=== PATIENT | female | born 1950 | race Caucasian/White ===

== ENCOUNTER 2020-08-11 07:37 | Outpatient (REF) | payer MEDICARE, SELFPAY ==
[2020-08-11 11:50] LABS: Alanine Aminotransferase 115 U/L (0-31); Albumin Level 4.4 g/dL (3.5-5.0); Alkaline Phosphatase 88 U/L (39-117); Anion Gap 12 (12-20); Aspartate Amino Transferase 70 U/L (5-31); Bilirubin Total 0.5 mg/dL (0.0-1.0); Blood Urea Nitrogen 19 mg/dL (9-16); Calcium 9.7 mg/dL (8.4-10.2); Carbon Dioxide 27 mmol/L (22-29); Chloride 105 mmol/L (96-108); Cholesterol 148 mg/dL; Estimated Glomerular Filt Rate > 60; Glucose Fasting 121 mg/dL (60-99); HDL Cholesterol 46 mg/dL; LDL Cholesterol Calculated 81 mg/dl; Potassium 4.4 mmol/l (3.3-5.1); Sodium 140 mmol/L (135-145); Total Protein 7.6 g/dL (6.5-8.0); Triglycerides 108 mg/dL
[2020-08-11 12:25] LABS: Creatinine Urine 153.48 mg/dL; Microalbum/Creatinine Ratio Ur 5.2 ug/mg cr
== END 2020-08-11 07:38 | disposition home or self-care (01) ==
LOC: HO.HMGCLDS 07:37
PROVIDERS: PCP Nurse Practitioner Family; Visit Provider Internal Medicine Endocrinology, Diabetes & Metabolism
DX: E11.65 Type 2 diabetes mellitus with hyperglycemia (principal)
CPT/HCPCS: 36415; 80053; 80061; 82043